=== PATIENT | female | born 1995 | race Caucasian/White ===

== ENCOUNTER 2021-03-24 13:23 | Inpatient (IN) | payer BC ==
[~2021-03-24] VITALS: Ht 172.7 cm; Wt 75.3 kg
[2021-03-24 14:33] LABS: BASOPHILS % (AUTO) 0.3 % (0.0-2.0); EOSINOPHILS % (AUTO) 0.3 % (1.0-6.0); LYMPHOCYTES # (AUTO) 1.9 K/uL (1.0-4.8); LYMPHOCYTES % (AUTO) 29.1 % (22.0-44.0); MEAN CORPUSCULAR HEMOGLOBIN 27.9 pg (26.0-34.0); MEAN CORPUSCULAR HGB CONC 32.4 G/dL (31.0-37.0); MEAN CORPUSCULAR VOLUME 86 fL (80-100); MONOCYTES # (AUTO) 0.5 K/uL (0.1-1.0); MONOCYTES % (AUTO) 7.6 % (2.0-9.0); NEUTROPHILS # (AUTO) 4.1 K/uL (1.8-7.7); NEUTROPHILS % (AUTO) 62.7 % (40.0-70.0); PLATELET COUNT (AUTO) 208 K/uL (150-450); RED BLOOD CELL COUNT(AUTO) 4.29 MIL/uL (4.00-5.20); RED CELL DISTRIBUTION WIDTH 13.7 % (11.5-14.5)
[2021-03-24 14:43] LABS: COVID AG,FIA SOURCE NASOPHARYNGEAL
[2021-03-24 14:56] LABS: ANION GAP 11 mmol/L (8-16); CALCIUM, TOTAL 9.9 mg/dL (8.8-10.5); CARBON DIOXIDE 27 mmol/L (22-29); CHLORIDE 105 mmol/L (98-107); CREATININE 0.79 mg/dL (0.60-1.30); GLOMERULAR FILTR. RATE CALC > 60 mL/min (>60); GLUCOSE,RANDOM 115 mg/dL (70-110); POTASSIUM 4.6 mmol/L (3.5-5.1); SODIUM SERUM 143 mmol/L (136-145); UREA NITROGEN, BLOOD 7 mg/dL (7-18)
[2021-03-24 15:03] LABS: ALANINE AMINOTRANSFERASE 20 U/L (12-78); ALBUMIN 4.8 g/dL (3.4-5.0); ALKALINE PHOSPHATASE 50 U/L (46-116); ASPARTATE AMINOTRANSFERASE 12 U/L (15-37); BILIRUBIN,TOTAL 0.9 mg/dL (0.1-1.0); TOTAL PROTEIN, SERUM 7.6 g/dL (6.4-8.2)
[2021-03-24] MEDS ORDERED: HALOPERIDOL 5 MG TABLET PO PRN (15:30)
[2021-03-24 17:04] LABS: APPEARANCE,URINE CLOUDY (CLEAR); BILIRUBIN,URINE NEGATIVE (NEGATIVE); GLUCOSE, URINE (UA) NEGATIVE (NEGATIVE); KETONES,URINE 15 mg/dL (NEGATIVE); LEUKOCYTE ESTERASE ,URINE NEGATIVE (NEGATIVE); NITRATE,URINE NEGATIVE (NEGATIVE); OCCULT BLOOD,URINE NEGATIVE (NEGATIVE); PROTEIN,URINE NEGATIVE (NEGATIVE); UROBILINOGEN,URINE 0.2 mg/dL (<=1.0)
[2021-03-24] MEDS ORDERED: HALOPERIDOL LACTATE 5 MG/ML VIAL ONE (17:25)
[2021-03-24] MEDS ORDERED: LORazepam 2 MG/ML VIAL ONE (17:25)
[2021-03-24] MEDS ORDERED: DiphenhydrAMINE HCL 50 MG/ML VIAL ONE (17:25)
[2021-03-24] MEDS ORDERED: HALOPERIDOL LACTATE 5 MG/ML VIAL IM ONE (17:30)
[2021-03-24] MEDS ORDERED: DiphenhydrAMINE HCL 50 MG/ML VIAL IM ONE (17:30)
[2021-03-24] MEDS ORDERED: LORazepam 2 MG/ML VIAL IM ONE (17:30)
[2021-03-25] MEDS ORDERED: ONDANSETRON HCL 4 MG TABLET PO PRN (11:30)
[2021-03-25] MEDS ORDERED: GuaiFENesin/D-METHORPHAN [SUGAR-FREE] 200-20MG/10 ML SYRUP UDCUP PO PRN (11:30)
[2021-03-25] MEDS ORDERED: ALBUTEROL SULFATE HFA 90 MCG/PUFF 8 GM INHALER IH PRN (11:30)
[2021-03-25] MEDS ORDERED: MAGNESIUM HYDROXIDE SUSPENSION 30 ML UDCUP PO PRN (11:30)
[2021-03-25] MEDS ORDERED: DOCUSATE SODIUM 100 MG CAPSULE PO PRN (11:30)
[2021-03-25] MEDS ORDERED: CloNIDine HCL 0.1 MG TABLET PO PRN (11:30)
[2021-03-25] MEDS ORDERED: MAG HYDROX/AL HYDROX/SIMETH ES 30 ML SUSPENSION UDCUP PO PRN (11:30)
[2021-03-25] MEDS ORDERED: LOPERAMIDE HCL 2 MG CAPSULE PO PRN (11:30)
[2021-03-25] MEDS ORDERED: PETROLATUM,WHITE 28 GM JELLY TP PRN (11:30)
[2021-03-25] MEDS: ACETAMINOPHEN 325 MG TABLET PO PRN (11:40)
[2021-03-25 16:31] VITALS: BP 117/71
[2021-03-25] MEDS ORDERED: PALIPERIDONE PALMITATE 156 MG/ML SYRINGE IM ONE (17:00)
[2021-03-25] MEDS: LURASIDONE HCL 40 MG TABLET PO SCH (21:00)
[2021-03-25] MEDS: ZOLPIDEM TARTRATE 10 MG TABLET PO PRN (23:50)
[2021-03-26 05:29] VITALS: BP 115/64
[2021-03-26 09:02] VITALS: BP 118/68
[2021-03-26] MEDS ORDERED: DiphenhydrAMINE HCL 50 MG/ML VIAL ONE (16:00)
[2021-03-26] MEDS ORDERED: LORazepam 2 MG/ML VIAL IM ONE (16:00)
[2021-03-26] MEDS ORDERED: HALOPERIDOL LACTATE 5 MG/ML VIAL IM ONE (16:00)
[2021-03-26] MEDS ORDERED: HALOPERIDOL LACTATE 5 MG/ML VIAL ONE (16:00)
[2021-03-26] MEDS ORDERED: LORazepam 2 MG/ML VIAL ONE (16:00)
[2021-03-26] MEDS ORDERED: DiphenhydrAMINE HCL 50 MG/ML VIAL IM ONE (16:00)
[2021-03-26 17:56] VITALS: BP 136/69
[2021-03-26] MEDS: LURASIDONE HCL 40 MG TABLET PO SCH (21:00)
[2021-03-27 03:27] VITALS: BP 127/70
[2021-03-27 08:13] VITALS: BP 129/84
[2021-03-27] MEDS: ACETAMINOPHEN 325 MG TABLET PO PRN (08:42)
[2021-03-27 16:06] VITALS: BP 132/73
[2021-03-27] MEDS: LORazepam 2 MG TABLET PO PRN (16:39)
[2021-03-27] MEDS: IBUPROFEN 400 MG TABLET PO PRN (16:39)
[2021-03-27] MEDS ORDERED: PALIPERIDONE PALMITATE 156 MG/ML SYRINGE IM ONE (20:15)
[2021-03-27] MEDS: LURASIDONE HCL 40 MG TABLET PO SCH (21:00)
[2021-03-28 05:32] VITALS: BP 121/68
[2021-03-28 08:22] VITALS: BP 129/72
[2021-03-28] MEDS: NICOTINE 14 MG/24 HOUR PATCH TD PRN (08:42)
[2021-03-28 16:00] VITALS: BP 126/73
[2021-03-28] MEDS: LORazepam 2 MG TABLET PO PRN (17:25)
[2021-03-28] MEDS: LURASIDONE HCL 40 MG TABLET PO SCH (19:55)
[2021-03-29] VITALS: BP 123/81
[2021-03-29] MEDS: LORazepam 2 MG TABLET PO PRN (01:09)
[2021-03-29] MEDS: IBUPROFEN 400 MG TABLET PO PRN (06:16)
[2021-03-29] MEDS: NICOTINE 14 MG/24 HOUR PATCH TD PRN (08:29)
[2021-03-29 16:08] VITALS: BP 125/76
[2021-03-29] MEDS: ZOLPIDEM TARTRATE 10 MG TABLET PO PRN (20:35)
[2021-03-29] MEDS: LURASIDONE HCL 40 MG TABLET PO SCH (20:56)
[2021-03-30] MEDS: IBUPROFEN 400 MG TABLET PO PRN (00:54)
[2021-03-30] MEDS: LORazepam 2 MG TABLET PO PRN ×3 (00:54→18:57)
[2021-03-30 06:24] VITALS: BP 112/73
[2021-03-30 08:39] VITALS: BP 120/74
[2021-03-30] MEDS: NICOTINE 14 MG/24 HOUR PATCH TD PRN (09:46)
[2021-03-30] MEDS: ACYCLOVIR 200 MG CAPSULE PO SCH ×2 (13:00→16:35)
[2021-03-30 16:06] VITALS: BP 129/77
[2021-03-30] MEDS: LURASIDONE HCL 40 MG TABLET PO SCH (20:17)
[2021-03-31 03:47] VITALS: BP 114/58
[2021-03-31] MEDS: LORazepam 2 MG TABLET PO PRN ×2 (03:48→13:34)
[2021-03-31] MEDS: ACYCLOVIR 200 MG CAPSULE PO SCH ×3 (08:07→17:00)
[2021-03-31] MEDS: ACYCLOVIR 5% 15 GM OINTMENT TP PRN (08:07)
[2021-03-31 08:17] VITALS: BP 125/86
[2021-03-31] MEDS: NICOTINE 14 MG/24 HOUR PATCH TD PRN (08:24)
[2021-03-31] MEDS: ACETAMINOPHEN 325 MG TABLET PO PRN (09:58)
[2021-03-31 11:54] LABS: COVID AG,FIA SOURCE NASAL SWAB
[2021-03-31 16:10] VITALS: BP 133/63
[2021-03-31] MEDS: ZOLPIDEM TARTRATE 10 MG TABLET PO PRN (20:43)
[2021-03-31] MEDS ORDERED: LURASIDONE HCL 60 MG TABLET PO SCH (21:00)
[2021-04-01 04:29] VITALS: BP 129/70
[2021-04-01] MEDS: LORazepam 2 MG TABLET PO PRN (04:37)
[2021-04-01] MEDS: ACYCLOVIR 5% 15 GM OINTMENT TP PRN (05:05)
[2021-04-01] MEDS: ACYCLOVIR 200 MG CAPSULE PO SCH ×2 (08:10→12:11)
[2021-04-01 08:19] VITALS: BP 126/68
[2021-04-01] MEDS ORDERED: LURA120T PO (10:05)
[2021-04-01] MEDS: ACETAMINOPHEN 325 MG TABLET PO PRN (11:03)
[2021-04-01] MEDS ORDERED: ACYC500I PO (11:55)
== END 2021-04-01 12:48 | disposition home or self-care (01) | DRG 885 ==
LOC: EMS 13:35 → B3A 15:39
PROVIDERS: ADMIT Psychiatry & Neurology Child & Adolescent Psychiatry; ATTEND Psychiatry & Neurology Child & Adolescent Psychiatry
DX: F20.0 Paranoid schizophrenia (principal); F10.10 Alcohol abuse, uncomplicated; F41.9 Anxiety disorder, unspecified; K59.00 Constipation, unspecified; Z20.822 Contact with and (suspected) exposure to COVID-19; Z87.891 Personal history of nicotine dependence; Z88.1 Allergy status to other antibiotic agents
CPT/HCPCS: 80053; 81003; 85025; 87426; 99285; A9575; G0480; J1200; J1630; J2060